=== PATIENT | female | born 1950 | race Caucasian/White ===

== ENCOUNTER → 2022-08-09 | Outpatient (CLI) | payer MEDICARE ==
[~2022-08-09] MED LIST: CATHETER FLUSH 10 ML SYR IV PRN; HOLD METFORMIN - RECEIVED CONTRAST 20 ML VIAL IV SCH; IOHEXOL 350 MG/ML 100 ML (OMNIPAQUE 350) VIAL IV ONE; NS 100 ML (IVPB) BAG IV ONE
--- NOTE | 2022-08-09 16:30 | Diagnostic Imaging Report ---
EXAMINATION: CT chest with intravenous contrast. TECHNIQUE: Multiple contiguous axial images were obtained through the chest after the uneventful administration of intravenous contrast. All CT scans use one or more of the following dose optimizing techniques: automated exposure control, MA and/or KvP adjustment based on patient size and exam type or iterative reconstruction. HISTORY: History of lung nodules. History of asthma. COMPARISON: None available. FINDINGS: The heart size is within normal limits. No pericardial effusion is present. Prominent mediastinal and axillary lymph nodes are seen, with a marker lymph node in the right paratracheal station measuring 1.4 cm. There is volume loss within the right middle lobe. Bronchiectasis and nodules are seen within the right middle lobe with the nodules measuring up to 0.6 cm. Atelectasis is also seen within the lingula. There are no focal areas of consolidation. No central endobronchial obstructing lesions are identified. There is no pleural effusion or pneumothorax. The osseous structures demonstrate no acute abnormalities. Limited views of the upper abdominal structures demonstrate no acute abnormalities. A nodule is visualized in the left adrenal gland measuring 2.2 x 1.8 cm. Small hiatal hernia is seen. IMPRESSION: 1. Subcentimeter nodules in the right middle lobe. There is associated volume loss and bronchiectasis in the right middle lobe. Atelectasis is also seen in the lingula. This appearance is most suggestive of chronic inflammatory/infectious process such as mycobacterium avium complex (MAC). Recommend correlation with patient history and follow-up as indicated. 2. Mildly prominent mediastinal and axillary lymph nodes. This is favored to be related to the above-mentioned inflammatory/infectious process. 3. Indeterminate nodule within the left adrenal gland. Consider adrenal protocol CT to further evaluate. 4. Small hiatal hernia. Dictated by: Dictated on workstation # [id number]
== END ==
LOC: RAD FS 09:18 → EDBD 09:45
PROVIDERS: ATTEND Nurse Practitioner
DX: R91.8 Other nonspecific abnormal finding of lung field (principal); J98.11 Atelectasis; R59.0 Localized enlarged lymph nodes; K44.9 Diaphragmatic hernia without obstruction or gangrene
CPT/HCPCS: 71260; Q9967